=== PATIENT | male | born 1990 | race Caucasian/White ===

== ENCOUNTER 2025-04-06 07:55 | Emergency (ER) | payer BC, SELFPAY ==
[2025-04-06 07:56] VITALS: BMI 28.5
[2025-04-06 08:06] VITALS: BP 158/94; PULSE 100; RESP 18; TEMP 36.8; O2SAT 97
--- NOTE | 2025-04-06 08:36 | EDNOTE_ITS ---
Lower Extremity Injury RME/HPI General Chief Complaint: Extremity Injury, Lower Stated Complaint: RLE PAIN Time Seen by Provider: 04/06/25 08:35 Arrival date/time: 04/06/25 07:55 RME / HPI RME / HPI Narrative: 34-year-old male who is healthy presents to the ER complaining of right sided calf pain which radiates to the front of his lower leg worse with twisting and moving his knee x 2 days. 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 Denies numbness, tingling, weakness, direct trauma, fever, vomiting. Related Data Previous Rx's ?Medication ?Instructions ?Recorded erythromycin 5 mg/gram (0.5 %) eye 0.5 inch ophthalmic (eye) BID #3.5 06/24/18 ointment grams ibuprofen 600 mg tablet 600 mg PO Q6H #30 tabs 10/06 Allergies Allergy/AdvReac Type Severity Reaction Status Date / Time No Known Allergies Allergy Verified 06/24/18 13:49 Review of Systems Review of Systems Systems Reviewed: All systems reviewed, normal except as documented ED Exam Narrative Physical exam: Constitutional: Vital Signs Reviewed. Well appearing. No acute distress. Not toxic appearing. Head: Normocephalic, atraumatic. Eyes: Conjunctiva clear. ENT: Mucous membranes moist. Neck: Trachea midline. Normal range of motion. No nuchal rigidity. Respiratory: Normal effort. No respiratory distress or accessory muscle use. Neuro: Alert and oriented. Speech normal. No focal gross motor or sensory deficits observed. Skin: Warm, dry, normal color. Psych: Pleasant. Normal affect. Cooperative. Right lower Extremity: No gross deformities. No erythema, ecchymosis, edema ,effusion. Positive tenderness to right calf. Full range of motion, strength 5 out of 5, sensation tact light touch to right knee. Negative anterior, posterior draw, laxity upon valgus and varus stress. Compartments are soft. Course Quality Measures none Orders Category Date Time Status US venous duplex LE RT Stat Exams 04/06/25 08:44 Completed XR knee comp RT 4V Stat Exams 04/06/25 08:44 Completed Ketorolac Inj [Toradol Inj] Med 04/06/25 08:44 Discontinued 30 mg IM X1 ONE Vital Signs Vital signs: Vital Signs Temperature 98.3 F 04/06/25 08:06 Pulse Rate 100 04/06/25 08:06 Respiratory Rate 18 04/06/25 08:06 Blood Pressure 158/94 H 04/06/25 08:06 Pulse Oximetry (%) 97 04/06/25 08:06 Oxygen Delivery Method Room Air 04/06/25 08:06 Extremity Injury, Lower MDM Narrative MDM Narrative:: MDM: This patient has been diagnosed with a soft tissue injury with concern for contusion vs strain vs sprain vs occult f/x or dislocation that does not have neurovascular compromise. There is no infectious e/o. Patient instructions include the recommendation to decrease activities, be weight bearing as tolerated, and to ice and elevate the injured limb. Extremity remains DNVI with soft compartments at time of discharge. I offered meli wrap, crutches, knee immobilizer, he declined. Patient data External records reviewed:: None Clinical information provided by:: patient Social determinants that could affect healthcare access:: none Patient has the following chronic illnesses:: None How is presenting disease/condition affected by chronic disease/condition?: no chronic disease Evaluation data The following diagnostics were reviewed and interpreted by me:: radiology exam(s) Lab and/or radiology exams considered but not ordered:: Labs and radiology considered, but not ordered as they were not clinically indicated at this time. Interpretation Summary: As noted. Ultrasound negative for DVT and x-ray without gross fracture or dislocation Medications / Prescriptions Medications or Prescriptions considered but not ordered:: I considered prescription management (both outpatient prescriptions AND drug treatment in the ER) and decided that this was necessary and was prescribed as charted. Medication administrations:: Medication Administration History Discontinued Medications Ketorolac Tromethamine (Ketorolac Inj 30 Mg/Ml Vial) 30 mg IM X1 ONE Stop: 04/06/25 08:45 Last Admin: 04/06/25 09:39 Dose: 30 mg Documented By: ALMA As noted Consultations Consultation(s) initiated? (list below): No Diagnosis Extremity Injury, Lower Differential Diagnosis: acute internal derangement of knee Most likely diagnosis given after review of the tests above:: Gastrocnemius strain Admission Indicated Admission indicated?: not indicated Admission Request Was there a request for admission?: No Disposition Plan Disposition Plan: Discharge Discharge Attestation Discharge Attestation: The patient and all family members were given an opportunity to ask questions and understood the discharge instructions. Discharge instructions specifically effects, indications for sooner follow up or return to the emergency department, and the expected course of current diagnosis. Patient condition: Stable Discharge Plan Plan Patient Disposition: HOME (Self Care) Prescriptions/Referrals Prescriptions/Med Rec: No Action erythromycin 5 mg/gram (0.5 %) ointment 0.5 inch OPHTHALMIC BID Qty: 3.5 0RF ibuprofen 600 mg tablet 600 mg PO Q6H Qty: 30 0RF Referrals: No Primary/Family,Physician [Primary Care Provider] - In 1 week Problem List Clinical Impression: Acute leg pain Patient/Caregiver Discharge Instructions Education Materials: ED Muscle Strain, Extremity Additional Instructions: Follow up with your primary medical doctor and an orthopedic doctor within 24 hours. Return to the Emergency Room immediately for any new, worsening, continuing symptoms or any concerns at all. Return to the Emergency Room within 24 hours if you are unable to follow up with your primary medical doctor and an orthopedic doctor within 24 hours. Print Language: Austrian Stand Alone Forms: Doris Award Info., Patient Portal Info Letter PA/ARON Supervising Physician PA/ARON Supervising Physician: Dr. Narvaez
--- NOTE | 2025-04-06 08:44 | XR_ITS ---
EXAMINATION: Right knee 4 views TECHNIQUE: AP oblique lateral axial right knee 4 views Date and time: April 06, 2025, 0943 hours INDICATIONS: Onset knee pain today. FINDINGS: Minor narrowing medial joint space No fracture or dislocation. No ossified joint body No patellar dislocation in particular IMPRESSION: No fracture or significant arthritic change
--- NOTE | 2025-04-06 08:44 | XR_ITS ---
Examination: Duplex scan of the lower extremity, unilateral right Date and time of exam: April 06, 2025, 0920 hours INDICATIONS: Right calf pain beginning 3 days ago Technique: Duplex scan of the extremity veins using B-mode/grayscale imaging and Doppler spectral analysis and color flow Attention is directed to internal echogenicity, compression and augmentation involving these veins, color flow assessment, spectral analysis Findings: Major deep venous structures in the extremity demonstrate normal course and caliber. There is no evidence of deep vein thrombosis. Normal color flow and spectral analysis Impression: Negative for DVT..
[2025-04-06] MEDS: KETOROLAC INJ 30 MG/ML VIAL IM (09:39)
== END 2025-04-06 11:59 | disposition home or self-care (01) ==
PROVIDERS: Emergency Provider Family Medicine
DX: M79.604 Pain in right leg (principal)
CPT/HCPCS: 73564; 93971; 96372; 99283; J1885